=== PATIENT | male | born 1980 | race African-American/Black ===

== ENCOUNTER 2019-03-22 21:37 | Emergency (ER) | payer MEDICAID ==
[~2019-03-22] VITALS: Ht 177.8 cm; Wt 81.0 kg
[2019-03-22] MEDS ORDERED: TETANUS, DIPHTHERIA, PERTUSSIS VAC/PF 0.5ML (>7YR OLD) IM ONE (21:45)
[2019-03-22 23:14] LABS: CHLORIDE 109 mEq/L (98-107)
[2019-03-22] MEDS ORDERED: LIDOCAINE HCL/EPINEPHRINE 1%-EPI 1:100,000 30 ML VIAL INFIL ONE (23:15)
[2019-03-22] MEDS ORDERED: KETOROLAC 15MG/ML VIAL IV ONE (23:15)
[2019-03-22] MEDS ORDERED: SODIUM CHLORIDE 0.9% 100 ML IV ONE (23:15)
[2019-03-22] MEDS ORDERED: METOCLOPRAMIDE HCL 10MG/2ML VIAL IV ONE (23:15)
[2019-03-22 23:18] LABS: ETHANOL BLOOD 16 mg/dL
[2019-03-22 23:19] LABS: BASOPHILS % 0.6 % (0.0-2.0); EOSINOPHILS % 3.1 % (0.0-5.0); HEMATOCRIT. 40.1 % (42.0-52.0); HEMOGLOBIN. 13.6 g/dL (14.0-18.0); LYMPHOCYTES % 15.5 % (20.0-50.0); MEAN CORPUSCULAR HEMOGLOBIN 34.2 pg (28.0-32.0); MEAN CORPUSCULAR VOLUME 100.6 fL (80.0-94.0); MEAN PLATELET VOLUME 9.1 fl (7.4-10.4); MONOCYTES % 6.8 % (2.0-8.0); PLATELET 172 x1000/uL (130-400); RED BLOOD CELL COUNT 3.99 mill/uL (4.7-6.1)
[2019-03-23] MEDS ORDERED: LIDOCAINE HCL/EPINEPHRINE 1%-EPI 1:100,000 20 ML VIAL INFIL STA (00:02)
[2019-03-23 00:05] VITALS: BP 124/70
== END 2019-03-23 01:39 | disposition home or self-care (01) ==
LOC: ER 22:39
DX: R55 Syncope and collapse (principal); S01.81XA Laceration without foreign body of other part of head, initial encounter; S01.511A Laceration without foreign body of lip, initial encounter; S01.21XA Laceration without foreign body of nose, initial encounter; F12.10 Cannabis abuse, uncomplicated; F17.210 Nicotine dependence, cigarettes, uncomplicated; W01.0XXA Fall on same level from slipping, tripping and stumbling without subsequent striking against object, initial encounter; Y93.89 Activity, other specified; Y92.481 Parking lot as the place of occurrence of the external cause
CPT/HCPCS: 12013; 36415; 70450; 70486; 72125; 80053; 80320; 84484; 85025; 90471; 90715; 93005; 96361; 96374; 96375; 99284; J1885; J2765; J3490; J7050; G0480